=== PATIENT | male | born 1990 | race Caucasian/White ===

== ENCOUNTER 2024-08-12 06:44 | Emergency (ER) | payer OTHER, SELFPAY ==
[2024-08-12 06:57] VITALS: BP 132/98
--- NOTE | 2024-08-12 07:11 | ED.GENMED ---
History of Present Illness
General
Chief Complaint: Crisis Evaluation
Time Seen by Provider: 08/12/24 07:10
History of Present Illness
History of Present Illness:
TIME OF INITIAL ENCOUNTER: 7:15 AM
HPI: The patient has been ongoing concerns of racing thoughts to the point that he is having trouble sleeping. He stopped taking testosterone about 2 months ago. He continues to drink alcohol including this morning to try to help sleep. He was
prescribed something along the lines of Benadryl in the past to help sleep but he stopped this because it was making him tired the next day. He adamantly denies taking any medication to harm himself. He currently does not have any thoughts of
harming himself and does not want to commit suicide. He has no medical complaints.
EXAM:
GENERAL: Well appearing in no distress
HEENT: Moist oral mucosa
CARDIOVASCULAR: No murmurs, normal heart rate, regular rhythm, No chest wall tenderness
PULMONARY: No respiratory distress, breath sounds are clear and equal
ABDOMEN: Soft with no peritoneal signs, no tenderness
NEUROLOGIC: Excellent strength all extremities, no coordination deficits
PSYCHIATRIC: Appropriate mental status, normal insight and judgement
EXTREMITIES: Nontender, no edema, moves all extremities equally
SKIN: No rash, no lesions
NUMBER AND COMPLEXITY OF PROBLEMS ADDRESSED AT THE ENCOUNTER
� Chronic conditions affecting care: Asthma, ADHD
� Acute Exacerbation and/or Progression of Chronic Illness: This is an acute but recurring problem
� Differential Diagnosis includes: OCD, perseverating thoughts, insomnia, denies SI
AMOUNT AND/OR COMPLEXITY OF DATA TO BE REVIEWED AND ANALYZED
� I performed an independent evaluation of and my interpretation is:
EKG:
CT:
X-rays:
Laboratory Studies: CBC unremarkable, mild transaminase elevation noted
Other:
� Review of other/old records: I reviewed records, the patient went to the OR for venous insufficiency of 2020
� Clinical information was obtained by an independent historian: I spoke to brother at bedside
� Prescriptions/Medications Considered but not given:
� Further testing considered but not performed:
RISK OF COMPLICATIONS AND/OR MORBIDITY OR MORTALITY OF PATIENT MANAGEMENT
� Social determinants of health affecting care: Lives at home, drinks alcohol
� Discussion with other providers: I spoke to [facility] who is giving patient outpatient referrals. [facility] confirms that the patient also denied any suicidal ideation to them as well. I also spoke to [facility] and they will do phone
interview.
� Escalation of care including admission/observation vs risk of discharge considered:
ANY OTHER UPDATES:
I spoke to [facility] who evaluated patient. I also spoke to [facility] who did a phone interview. Labs unremarkable. Alcohol level 105. MCV is 89. Strongly encourage cessation of alcohol.
Phy Exam
Physical Exam
Physical Exam:
See HPI
Course
Orders/Labs/Results
Orders:
Orders
08/12/24 06:56
1:1 Observation - Suicide/ Violent Behavior As Directed
08/12/24 07:27
Crisis Consult Urgent
Reason for Consult: racing thoughts
08/12/24 08:01
Alcohol Urgent
Complete Blood Count/With Diff Urgent
Comprehensive Metabolic Panel Urgent
Drug Screen, Urine [Urine Drug Abuse Screen] Urgent
Date Specimen was Collected: 08/12/24
Time Specimen was Collected: 07:47
Abnormal Lab Results
08/12/24
08:01
MCH 31.6 H pg
(27.0-31.0)
MPV 10.5 H fL
(7.4-10.4)
Absolute Monos (auto) 1.0 H 10^3/uL
(0.1-0.6)
Monocytes % 10.6 H %
(1.7-9.3)
BUN 8 L mg/dl
(9-20)
Creatinine 0.6 L mg/dL
(0.7-1.3)
AST 84 H U/L
(17-59)
ALT 82 H U/L
(0-50)
Albumin 5.4 H g/dl
(3.5-5.0)
08/12/24 08:01
08/12/24 08:01
Vital Signs
Initial and Last Documented VS:
Initial Vital Signs
Temp Pulse Resp BP Pulse Ox
36.6 C 98 16 132/98 97
08/12/24 06:57 08/12/24 06:57 08/12/24 06:57 08/12/24 06:57 08/12/24 06:57
Last Documented Vital Signs
Temp Pulse Resp BP Pulse Ox
36.6 C 98 16 132/98 97
08/12/24 06:57 08/12/24 06:57 08/12/24 06:57 08/12/24 06:57 08/12/24 06:57
*Critical Care Note
Total Time (30-74mins, 75-104mins- exclusive of procedures): Not Applicable
ED Attending Note
-
Portions of this chart may have been created with voice recognition software.� Occasional wrong word or��sound alike� substitutions may have occurred due to the inherent limitations of voice recognition software.
Discharge Plan
Departure
Patient Disposition: Home (Routine Discharge)
Date of Disposition: 08/12/24
Time of Disposition: 09:45
Patient with high blood pressure during this ER visit?: Yes
Discharge Problem:
Insomnia
Instructions: Insomnia
Prescriptions:
No Action
dextroamphetamine-amphetamine [Adderall XR] 30 MG capsule,extended release 24hr
30 mg PO DAILY
albuterol sulfate 1 PUFF HFA aerosol inhaler
1 puff inhalation R [id number] PRN (Reason: ASTHMA)
Referrals:
George Pierre MD [Primary Care Provider] -
Activity Restrictions/Additional Instructions:
I strongly recommend avoiding alcohol. Long-term use of this can make insomnia, anxiety worse and interfere with liver function test. The transaminase portion of your liver function test is slightly elevated. Alcohol level currently is 105. No
driving today. Urine drug screen was entirely negative. Other basic blood work is unremarkable. Follow-up as recommended by crisis and [facility]. Consider taking [id number] Unisom/doxylamine at nighttime to help with sleep.
Interventions
Interventions:
*Risk Screen - Suicide Last Done: 08/12/24 06:55
*Neglect/Abuse Screening Last Done: 08/12/24 06:57
ED-Psychological Assessment Last Done: 08/12/24 09:00
Discharge Date and Time
Print Language: SWAZI
[2024-08-12 08:17] LABS: % Basophils 0.4 % (0-2); % Eosinophils 0.3 % (0-6); % Immature Granulocytes 0.4 % (0-0.5); % Lymphocytes 26.2 % (20.5-51.1); % Monocytes 10.6 % (1.7-9.3); % Neutrophils 62.1 % (42.2-75.2); Absolute Lymphocytes 2.6 10^3/uL (1.2-3.4); Absolute Neutrophils 6.1 10^3/uL (1.4-6.5); Hematocrit 47.7 % (39.0-52.0); Hemoglobin 16.9 g/dL (13.0-18.0); Mean Corp Hgb Conc. 35.4 g/dL (33.0-37.0); Mean Corpuscular Hgb 31.6 pg (27.0-31.0); Mean Corpuscular Volume 89.3 fL (80.0-94.0); Mean Platelet Volume 10.5 fL (7.4-10.4); Nucleated Red Blood Cells % 0 % (-); Platelet Count 207 10^3/uL (130-400); Red Blood Cell Count 5.34 10^6/uL (4.70-6.10); Red Cell Dist. Width 11.9 % (11.5-14.5); White Blood Cell Count 9.7 10^3/uL (4.8-10.8)
[2024-08-12 08:32] LABS: ALT (SGPT) 82 U/L (0-50); AST (SGOT) 84 U/L (17-59); Albumin 5.4 g/dl (3.5-5.0); Alcohol 105 mg/dl; Alkaline Phosphatase 59 U/L (38-126); Blood Urea Nitrogen 8 mg/dl (9-20); Calcium 9.8 mg/dl (8.4-10.2); Carbon Dioxide 24 mmol/L (22-30); Chloride 106 mmol/L (98-107); Glucose 84 mg/dl (70-99); Sodium 144 mmol/L (135-145); Total Bilirubin 0.8 mg/dl (0.2-1.3); Total Protein 7.8 g/dl (6.3-8.2); eGFR > 60.00
[2024-08-12 08:37] LABS: Amphetamines Negative (Negative); Barbiturates Negative (Negative); Benzodiazepines Negative (Negative); Buprenorphine Negative (Negative); Cocaine Negative (Negative); Marijuana Negative (Negative); Methadone Negative (Negative); Methamphetamines Negative (Negative); Opiates Negative (Negative); Phencyclidine Negative (Negative); Tricyclic Antidepressants Negative (Negative)
== END 2024-08-12 10:13 | disposition home or self-care (01) ==
LOC: EMR 06:44
PROVIDERS: EMERGENCY PHYSICIAN Emergency Medicine; PRIMARYCARE PHYSICIAN Internal Medicine
DX: G47.00 Insomnia, unspecified (principal); J45.909 Unspecified asthma, uncomplicated; F90.9 Attention-deficit hyperactivity disorder, unspecified type
CPT/HCPCS: 99283; 80053; 80306; 82077; 85025